=== PATIENT | male | born 1985 | race Caucasian/White ===

== ENCOUNTER 2016-12-25 22:00 | Inpatient (IN) | payer MEDICAID ==
[~2016-12-25] VITALS: Ht 177.8 cm; Wt 75.7 kg
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
--- NOTE | ~2016-12-25 | DS ---
Unit #: [id number] #: [id number] [facility]: [facility]INA [id number] [facility] [address] [place] [address] [id number] MR#: [id number] NAME: KIMBERLEY PINA ROOM: [facility] Age: 31 Sex: M Admission Date: 12/26/2016 : 1985 Discharge Date: 12/29/2016 Attending Physician: Roslyn Hutchins M.D. Primary Care Physician: Primary Care Physician No DISCHARGE SUMMARY IDENTIFYING DATA Mr. Ferrari is a 31-year-old single white male, who is a resident of [place], [place], and was brought to the hospital on a mental inquest warrant taken out by his stepfather. DISCHARGE DIAGNOSES Psychiatric: Bipolar disorder, most recent episode manic with psychosis. Medical: None. Stressors: Mild psychosocial stressors. HISTORY OF PRESENT ILLNESS Please see initial psychiatric evaluation for details. PAST PSYCHIATRIC HISTORY Please see initial psychiatric evaluation for details. PAST MEDICAL HISTORY Please see initial psychiatric evaluation for details. HOSPITAL COURSE The patient was admitted to the adult psychiatric unit at [facility] and was oriented to the hospital environment. Routine p.r.n. medications were initiated, and he was started back on his home medications, and Zyprexa and lithium were initiated as the patient was initially seen to be very manic and agitated and irritable and exhibiting some psychosis. However, he was cooperative and compliant with treatment recommendations. He was taking the medications regularly and was tolerating them fairly well and was able to show a decent therapeutic response with improvement in his milton and psychosis. No agitation or aggression was noticed, and he was not seen to be a danger to self or anyone else, and as such, it was decided that he will be discharged home and will continue treatment on an outpatient basis. DISCHARGE MEDICATIONS Zyprexa 10 mg b.i.d. for bipolar and lithium 450 mg b.i.d. for bipolar. DISCHARGE CONDITION Stable. PROGNOSIS Fair. Unit #: [id number] #: [id number] Patient: KIMBERLEY PINA Dictated by... Roslyn Hutchins M.D. IAA/modl TD: 12/29/2016 06:55 JOB #: [id number] DISCHARGE SUMMARY Page 1 of 1 X Roslyn Hutchins MD DISCHARGE SUMMARY
--- NOTE | ~2016-12-25 | TN ---
Unit #: [id number] #: [id number] Patient: KIMBERLEY PINA [id number] [facility] [address] [place] [address] [id number] MR#: [id number] NAME: KIMBERLEY PINA ROOM: P214 Age: 31 Sex: M Admission Date: 12/26/2016 : 1985 Discharge Date: 12/29/2016 Attending Physician: Roslyn Hutchins M.D. Primary Care Physician: Primary Care Physician No LOC TRANSFER NOTE DATE OF SERVICE: 01/02/2017 DATE OF SERVICE 01/02/2017. IDENTIFYING DATA Mr. Mccauley is a 31-year-old single white male, who is a resident of [place], [place], and was stepped down to the outpatient treatment program from the adult inpatient psychiatric unit, where he was hospitalized under my care from 12/26/2016 to 12/29/2016 on a mental inquest warrant taken out by his stepfather. CHIEF COMPLAINT "I was off my medication." HISTORY OF PRESENT ILLNESS Mr. Mccauley is a 31-year-old white male with history of mood disorder, who was hospitalized under my care on a mental inquest warrant and was seen to be acutely psychotic and manic and aggressive and was in a mental inquest warrant. However, he was started back on his home medications including his Zyprexa and lithium and was medically stabilized and was stepped down to the outpatient treatment program. When seen by me, the patient still was seen to be somewhat in a manic phase as he stated that he has not been able to get his Zyprexa filled and reports that he has been living with his girlfriend and he has left his ex- and she would not let him see the kids and therefore, he is somewhat upset about that; however, he was seen to be in a rather pleasant and elated mood. He denies any suicidal ideations, intent, or plan. SUBSTANCE ABUSE HISTORY The patient reports occasional use of beers, but denies any other substance abuse issues. PAST PSYCHIATRIC HISTORY The patient has had a history of inpatient psychiatric hospitalization at [facility] and has been diagnosed and treated for bipolar disorder and is currently on a combination of Zyprexa, lithium, and Adderall. PAST MEDICAL HISTORY No acute or chronic medical illness. ALLERGIES No known medication allergies. Unit #: [id number] #: [id number] Patient: KIMBERLEY PINA PERSONAL AND SOCIAL HISTORY A 31-year-old white male, who reports that he is single and lives with his girlfriend and has poor social support system. MENTAL STATUS EXAMINATION Young white male, who was casually dressed with fair personal hygiene, appears to be in no acute distress or discomfort. He was awake and alert on interaction with intact orientation. His mood was anxious with a congruent affect. His speech was slow and tangential. His thought processes were disorganized with some looseness of associations and flight of ideas. His insight and judgment remain significantly impaired. DIAGNOSTIC IMPRESSION Psychiatric: Bipolar disorder, most recent episode manic. Medical: None. Stressors: Moderate psychosocial stressors. TREATMENT PLAN 1. The patient has presented with a history of mood disorder, and we will recommend enrolling him into the outpatient treatment program and maintaining him on his current medications. We will encourage him to show better compliance with medications and treatment recommendations. 2. Supportive therapy was provided to the patient. ESTIMATED LENGTH OF STAY 14 to 21 days. ABILITY TO HELP SELF Limited. WILLINGNESS TO HELP SELF The patient appears to be willing to help self. STRENGTHS 1. Communicative. 2. Cooperative. PROBLEMS 1. Chronic dysphoric symptoms. 2. Poor social support system. DISCHARGE CRITERIA This will be contingent upon the patient's ability to show resolution of his milton and psychosis and his ability to stay safe to himself, particularly after discharge from the hospital. Dictated by... Geovanny Mcleod/mina TD: 01/02/2017 12:49 JOB #: [id number] Unit #: [id number] #: [id number] Patient: KIMBERLEY PINA LOC TRANSFER NOTE Page 1 of 1 X Roslyn Hutchins MD X LOC TRANSFER NOTE
--- NOTE | ~2016-12-25 | PN ---
Unit #: [id number] #: [id number] Patient: KIMBERLEY KEENAN [id number] [facility] [address] [place] [address] [id number] MR#: [id number] NAME: KIMBERLEY KEENAN ROOM: P214 Age: 31 Sex: M Admission Date: 12/26/2016 : 1985 Attending Physician: Roslyn Hutchins M.D. Admitting Physician: Roslyn Hutchins M.D. Primary Care Physician: Primary Care Physician Marion WHEELER NOTES DATE OF SERVICE: 12/28/2016 SUBJECTIVE Mr. Keenan is a 31-year-old white male, who was seen today and chart was reviewed, and case was discussed with the staff. He has been anxious, withdrawn, and rather seclusive to himself. Meanwhile, he has been cooperative with treatment recommendations and has been taking medication and tolerating them fairly well with no reported side effects. MENTAL STATUS EXAMINATION Young white male who was casually dressed with fair personal hygiene, appears to be in no acute distress or discomfort. He was awake and alert with intact orientation. His mood was anxious with a congruent affect. He denies any suicidal or homicidal ideation. His insight and judgment remain slightly impaired. TREATMENT PLAN 1. We will continue on his current medications and treatment protocol. We will monitor his response and make further adjustment as needed. 2. We will continue to follow up. Dictated by... Geovanny Mcleod/zachl TD: 12/29/2016 23:14 JOB #: [id number] [facility] PROGRESS NOTES Page 1 of 1 X Roslyn Hutchins MD PROGRESS NOTE
--- NOTE | ~2016-12-25 | PN ---
Unit #: [id number] #: [id number] Patient: KIMBERLEY KEENAN [id number] [facility] [address] [place] [address] [id number] I MR#: [id number] NAME: KIMBERLEY KEENAN ROOM: P214 Age: 31 Sex: M Admission Date: 12/26/2016 : 1985 Attending Physician: Roslyn Hutchins M.D. Admitting Physician: Roslyn Hutchins M.D. Primary Care Physician: Primary Care Physician Marion WHEELER NOTES DATE 12/27/2016 DISCUSSION Mr. Keenan is a 31-year-old male with mood disorder and psychosis who was seen today and chart was reviewed and case was discussed with the staff. He appears to be doing somewhat better and has been calm and cooperative and has not shown any agitation or aggression. Meanwhile, he still appears to be quite disorganized and has been asking very bizarre questions as he apparently asked me if I could let him go out to smoke and then he asked me if his daughter is having a constitution party, if he can just go and attend the constitution party and come back and then he asked me if I can let him shave and then apparently redirecting him about the rules and policies and procedures of being in acute inpatient hospitalization and he has been having some difficulty grasping that. MENTAL STATUS EXAMINATION Young white male who was casually dressed with fair personal hygiene and appears to be in no acute distress or discomfort. He was awake and alert on interaction with intact orientation. His mood was anxious with congruent affect. He denies any suicidal or homicidal ideations. His insight and judgement remains slightly impaired. TREATMENT PLAN 1. Will continue his current treatment protocol. Will monitor his response and make further adjustments as needed. 2. Will continue to follow up. Dictated by... Geovanny Mcleod/hood TD: 12/29/2016 08:23 JOB #: [id number] Unit #: [id number] #: [id number] Patient: KIMBERLEY KEENAN PEANAN PROGRESS NOTES Page 1 of 1 X Roslyn Hutchins A MD X PROGRESS NOTE
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
[2016-12-27 10:58] LABS: BASOPHIL% 0.9 % (0-2.5); EOSINOPHIL# 0.1 X10e3 (0-0.7); HEMATOCRIT 40.9 % (38.0-50.0); HEMOGLOBIN 13.6 gm/dL (13.0-16.0); LYMPHOCYTE# 1.7 X10e3 (1.0-3.5); LYMPHOCYTE% 37.9 % (17.0-45.0); MEAN CELL VOLUME 94.5 FL (83-96); MEAN CORPUSCULAR HEMOGLOBIN 31.3 PG (28-34); MEAN CORPUSCULAR HGB CONC 33.2 g/dL (30-36); MEAN PLATELET VOLUME 9.8 FL (6.5-11.5); MONOCYTE# 0.6 X10e3 (0-1.0); MONOCYTE% 12.4 % (3.0-12.0); NEUTROPHIL# 2.1 X10e3 (1.5-7.1); NEUTROPHIL% 45.8 % (40-75); PLATELET COUNT 231 X10e3 (140-420); RED BLOOD COUNT 4.33 X10e (3.90-5.60); RED CELL DISTRIBUTION WIDTH 12.4 % (11.0-15.5); WHITE BLOOD COUNT 4.5 X10e3 (4.0-10.5)
[2016-12-27 11:03] LABS: DIFF IND NO
[2016-12-27 11:25] LABS: ALBUMIN SERUM 3.7 g/dL (3.5-5.0); BUN/CREATININE RATIO 18.75; CALCIUM SERUM 8.8 mg/dL (8.4-10.2); CREATININE SERUM 0.8 mg/dL (0.6-1.4); GLOM FILT RATE Estimated 119.1 mL/min (>60); POTASSIUM 4.4 mmol/L (3.5-5.1); PROTEIN TOTAL SERUM 5.9 g/dL (6.0-8.3)
== END 2016-12-29 08:45 | disposition home or self-care (01) | DRG 885 ==
LOC: P1S 12-26 00:43 → P2S 12-28 16:19
PROVIDERS: Psychiatry & Neurology Psychiatry
DX: F31.2 Bipolar disorder, current episode manic severe with psychotic features (principal); F17.200 Nicotine dependence, unspecified, uncomplicated
CPT/HCPCS: 80053; 80178; 85025